=== PATIENT | female | born 1935 | race Caucasian/White ===

== ENCOUNTER 2019-05-18 18:55 | Observation (INO) | payer MEDICARE, SELFPAY ==
--- NOTE | ~2019-05-18 | XR_ITS ---
XR chest 2V 05/20/2019 11:00 Indication: Pulmonary vascular congestion. Shortness of breath. Cough. Procedure: 2 view chest Comparison: 05/18/2019 Findings: Small pleural effusions. Cardiomegaly. Pacemaker leads stable. No focal pneumonia, edema or pneumothorax. Left basilar atelectasis. Impression: 1: Small pleural effusions. 2: Left basilar atelectasis. 3: Cardiomegaly. Reviewed, dictated and finalized at location B. E RELIEF DRIVER Impression: 1: Small pleural effusions. 2: Left basilar atelectasis. 3: Cardiomegaly.
--- NOTE | ~2019-05-18 | XR_ITS ---
EXAMINATION: XR chest 1V portable EXAM DATE: 05/18/2019 19:45 INDICATION: Shortness of breath. TECHNIQUE: Portable AP frontal chest x-ray was obtained. There is no prior study for comparison. FINDINGS: There is a dual lead pacemaker/AICD seen with leads projecting over the expected locations of the right atrial appendage and right ventricle. The cardiac silhouette is enlarged. There is pulmo nary vascular congestion. No confluent consolidation, pneumothorax or pleural effusion suspected. The re are bony degenerative changes. IMPRESSION: Cardiomegaly, pulmonary vascular congestion. Reviewed, dictated and finalized at location A. APPLICATION DEVELOPER
--- NOTE | 2019-05-18 19:06 | ECG_ITS ---
Measurements Intervals [place] Rate: 68 P: 69 NM: 306 QRS: -71 QRSD: 178 T: 98 QT: 459 QTc: 490 Interpretive Statements ELECTRONIC ATRIAL PACEMAKER WITH INHIBITION ELECTRONIC VENTRICULAR PACEMAKER FREQUENT VENTRICULAR PREMATURE COMPLEXES BASELINE ARTIFACT- V1, V3, V4-V6 NO FURTHER INTERPRETATION IS POSSIBLE ABNORMAL ECG Electronically Signed On 05-19-2019 9:01:01 EGG FACTORY WORKER by Kirk Vasquez D.O.
[2019-05-18 19:18] VITALS: BP 174/111; PULSE 70; RESP 20; TEMP 37.1; O2SAT 97
[2019-05-18 19:30] LABS: Basophils Absolute Auto 0.02 K/mm3 (0.00-0.10); Basophils Percent Auto 0.3 % (0.0-1.0); Eosinophils Absolute Auto 0.09 K/mm3 (0.02-0.50); Eosinophils Percent Auto 1.1 % (1.0-6.0); Hematocrit 40.6 % (35.0-42.0); Immature Granulocyte Absolute 0.04 K/mm3 (0.00-0.00); Immature Granulocyte Percent A 0.5 % (0.0-0.0); Mean Corpuscular HGB Conc 34.5 g/dL (32.0-36.0); Mean Corpuscular Hemoglobin 30.8 pg (27.0-31.0); Mean Corpuscular Volume 89.2 fL (78.0-102.0); Mean Platelet Volume 9.8 fl (9.2-11.8); Monocytes Absolute Auto 0.57 K/mm3 (0.10-0.90); Monocytes Percent Auto 7.3 % (2.0-11.0); Neutrophils Percent Auto 76.8 % (50.0-70.0); Platelet Count Result 278 K/mm3 (150-420); Red Blood Count 4.55 M/mm3 (4.20-5.40); Red Cell Distribution Width 12.6 % (11.6-14.4); White Blood Count 7.9 K/mm3 (4.8-10.8)
[2019-05-18 19:43] LABS: INR 1.4; Prothrombin Time 14.3 Seconds (9.64-11.0)
[2019-05-18 19:50] LABS: BNP 1770 pg/mL (0-100)
[2019-05-18 19:57] LABS: Alanine Aminotransferase 189 U/L (14-59); Albumin Level 3.2 g/dL (3.4-5.0); Alkaline Phosphatase 85 U/L (46-116); Anion Gap 16.7 mmol/L (7-16); Aspartate Amino Transferase 85 U/L (15-37); Bilirubin,Total 0.3 mg/dL (0.00-1.00); Blood Urea Nitrogen 18 mg/dL (7-18); Calcium 8.7 mg/dL (8.5-10.1); Carbon Dioxide 21 mmol/L (21-32); Chloride 103 mmol/L (98-108); Estimated Glomerular Filt Rate 55; Glucose 138 mg/dL (70-99); Osmolality Calculated 287 mOsm/kg (285-295); Potassium 3.7 mmol/L (3.5-5.1); Sodium 137 mmol/L (136-145); Total Protein 6.5 g/dL (6.4-8.2)
[2019-05-18 19:59] LABS: Troponin I 0.02 ng/mL (0.00-0.056)
[2019-05-18 20:07] VITALS: BP 167/102; PULSE 60; O2SAT 98
[2019-05-18] MEDS: FUROSEMIDE INJ 40 MG/4 ML VIAL IV PUSH (20:14)
--- NOTE | 2019-05-18 20:39 | ED.SOB ---
HPI - SOB/Dyspnea General Chief Complaint: Shortness of Breath/Dyspnea Stated Complaint: amb Time Seen by Provider: 05/18/19 19:50 Source: patient and family Mode of arrival: EMS Limitations: clinical condition History of Present Illness HPI Narrative: Maddy is a 83-year-old female patient. Maddy has been driving from [place] to [place]. She was visiting family in [place]. She is from [place], [place] . She was in [facility]. She had a dual-chamber pacemaker implanted there 2 weeks ago. Her admission complaint is shortness of breath for the past 3 days. She has developed swelling of both legs. She has shortness of breath at rest. She denies any chest pain. She has had atrial fibrillation in the past . She had electrocardioversion done in [place]. I saw her discharge summary from [facility] . There is 1 note with says that anticoagulation was discussed with the patient but she had previously refused it. This time upon discussion, she apparently agreed to it but she is not on any anti coagulation at this time. She is in normal sinus rhythm at this time. She had an echocardiogram done in [facility]. Her LV ejection fraction was 62. She had moderate left ventricular hypertrophy. There was some degeneration of the mitral valve. She has severe aortic stenosis. She had mildly elevated pulmonary artery pressure. MD elicited complaint: shortness of breath Pertinent past history: other ( Atrial fibrillation. Hypothyroidism. Hypercholesterolemia. Hypertension.) Context: recent illness and other ( Had complete heart block and pacemaker implant) Severity: moderate Exacerbating factors: lying flat and exertion Relieving factors: oxygen Known history of: other ( no history of previous CHF) Treatment prior to arrival: oxygen Related Data Home oxygen amount: none Home Medications Medication Instructions Recorded Confirmed [id number] 1 cap PO DAILY 05/18/19 05/18/19 [K[employer] ([place] 3 and 6)] levothyroxine 50 mcg PO DAILY 05/18/19 05/18/19 lovastatin 20 mg PO DAILY 05/18/19 05/18/19 metoprolol tartrate 12.5 mg PO BID 05/18/19 05/18/19 valsartan 40 mg PO BID 05/18/19 05/18/19 Review of Systems Review of Systems: All systems reviewed & are unremarkable except as noted in HPI and below Constitutional: Constitutional: Reports as per HPI, Denies chills, Denies fever(s) and Reports weakness Eyes: Eyes: Reports as per HPI, Reports no additional eye complaints and Denies change in vision ENT: Reports system reviewed and no additional complaints, except as documented, Denies nasal congestion and Denies sore throat Cardiovascular: Cardiovascular: Reports as per HPI, Denies chest pain and Denies radiating jaw, neck or arm pain Respiratory: Respiratory: Reports as per HPI, Reports no additional respiratory complaints, Denies cough and Reports dyspnea Gastrointestinal: Gastrointestinal: Reports no additional gastrointestinal complaints, Denies abdominal pain, Denies diarrhea and Denies vomiting Genitourinary: Genitourinary: Reports no additional female genitourinary complaints, Denies hematuria and Denies dysuria Musculoskeletal: Musculoskeletal: Reports no additional musculoskeletal complaints and Denies back pain Integumentary/Breasts: Skin/Breast: Reports system reviewed and no additional complaints, except as docu, Denies erythema and Denies rash Neurologic: Reports system reviewed and no additional complaints, except as documented, Denies vertigo, Denies syncope, Denies headache(s), Denies focal weakness, Denies numbness and Reports weakness Psychiatric: Psychiatric: Reports no additional psychiatric complaints and Reports anxiety Endocrine: Endocrine: Reports no additional endocrine complaints, Denies polydipsia and Denies polyuria Comments: history of hypothyroidism Hematologic/Lymphatic: Hematologic/Lymphatic: Reports no additional hematologic/lymphatic complai
[2019-05-18 21:02] VITALS: BP 158/92; PULSE 60; O2SAT 97
[2019-05-18 21:48] VITALS: BP 164/87; PULSE 57; RESP 20; TEMP 36.1; O2SAT 97; BMI 33.0
[2019-05-19] VITALS (10 sets, daily range): BP systolic 129–157; BP diastolic 66–96; PULSE 57–102; RESP 16–20; TEMP 35.7–36.4; O2SAT 94–97
--- NOTE | 2019-05-19 00:24 | PC.NURSE ---
O21 3l per nc continues. Telemetry continues, paced.
--- NOTE | 2019-05-19 01:03 | PC.NURSE ---
Sleeping, resp even. Telemetry, O2 & continuopus pulse ox on.
--- NOTE | 2019-05-19 02:17 | PC.NURSE ---
Sleeping, resp deep & even. O2, continuous pulse ox & telemetry continue.
--- NOTE | 2019-05-19 03:04 | PC.NURSE ---
Sleeping, resp deep & even. Continous Spo2, o2 & telemetry
--- NOTE | 2019-05-19 04:10 | PC.NURSE ---
Pt has voided x2 so far this shift.
--- NOTE | 2019-05-19 04:20 | PC.NURSE ---
Called [facility] at [phone] Nurse's Station to enquire regarding medical record/Echo. Staff transferred call and was placed on hold and call terminated.
--- NOTE | 2019-05-19 04:23 | PC.NURSE ---
Spoke with [employer] Hardware Design Engineer regarding Echo ordered 05/18/2019; to contact floor regarding time.
--- NOTE | 2019-05-19 06:06 | PC.NURSE ---
Pt has voided 1450ml urine this shift. Pt states is having leg cramps.
--- NOTE | 2019-05-19 06:11 | PC.NURSE ---
Meg, Lab notified of need for CMP stat.
[2019-05-19 06:39] LABS: Alanine Aminotransferase 161 U/L (14-59); Alkaline Phosphatase 73 U/L (46-116); Anion Gap 13.2 mmol/L (7-16); Aspartate Amino Transferase 61 U/L (15-37); Bilirubin,Total 0.6 mg/dL (0.00-1.00); Blood Urea Nitrogen 14 mg/dL (7-18); Calcium 8.8 mg/dL (8.5-10.1); Carbon Dioxide 28 mmol/L (21-32); Chloride 101 mmol/L (98-108); Estimated CRCL calculation 38 ml/min; Estimated Glomerular Filt Rate 57; Glucose 107 mg/dL (70-99); Osmolality Calculated 288 mOsm/kg (285-295); Potassium 3.2 mmol/L (3.5-5.1); Sodium 139 mmol/L (136-145); Total Protein 6.2 g/dL (6.4-8.2)
[2019-05-19 06:49] LABS: BNP 1570 pg/mL (0-100)
--- NOTE | 2019-05-19 07:30 | PC.NURSE ---
96% on 2L NC, no distress at rest denies needs at this time, commode chair set up by bed
--- NOTE | 2019-05-19 08:30 | PC.NURSE ---
Ate well for breakfast, no distress noted, PO 92% Room air
--- NOTE | 2019-05-19 09:11 | PC.NURSE ---
Call made for patient and transferred to room, no distress noted, pulse ox when talking noted to be 90% on room air, heart rate 100
[2019-05-19] MEDS: METOPROLOL TARTRATE 25 MG TABLET 12.5 MG PO ×2 (09:32→20:19)
[2019-05-19] MEDS: LEVOTHYROXINE SODIUM 50 MCG TABLET PO (09:32)
[2019-05-19] MEDS: POTASSIUM CHLORIDE 20 MEQ PACKET (FOR LIQUID) 40 MEQ PO (09:33)
[2019-05-19] MEDS: FUROSEMIDE INJ 40 MG/4 ML VIAL IV PUSH ×2 (09:33→17:04)
[2019-05-19] MEDS: ENOXAPARIN 40 MG/0.4 ML SYRINGE SUB-Q (09:34)
[2019-05-19] MEDS: VALSARTAN 80 MG TABLET 40 MG PO ×2 (09:40→20:18)
--- NOTE | 2019-05-19 09:48 | PC.NURSE ---
AM meds administered, remains on telemetry with demand pacer spikes noted, oxygen is off at this time with room air sat 96% resting in bed, oral potassium added with the IV lasix today
--- NOTE | 2019-05-19 10:32 | PC.NURSE ---
PO on room air at this time 94%
--- NOTE | 2019-05-19 11:09 | PC.NURSE ---
Dr Bernal and Hospitalist Paris Varma in to make rounds on patient
--- NOTE | 2019-05-19 12:03 | PC.NURSE ---
Sitting on edge of bed, no distress, oxygen level 94% room air
--- NOTE | 2019-05-19 12:21 | PM.IMHP ---
H&P: HPI History of Present Illness Chief complaint: amb <HENRY Red - Last Filed: 05/19/19 15:47> Narrative: lei albert is a 83 year old female that presented to the ED complaining of shortness of breath with dyspnea and bilateral lower extremity swelling. Patient has a past medical history , hypertension, hypothyroidism, severe aortic stenosis pacemaker placed 2 weeks ago and hypercholesterolemia. According to patient she is traveling from [place] back home to [place] during her travel she experiences shortness of breath that worsened that she has had for 3 days and bilateral lower extremity swelling. patient was recently admitted into [facility] on 05/04/19 while visiting in [place] for near-syncope episode and found to have a second-degree heart block with intermittent complete heart block at that time a pacemaker was place. While in the ER patient was given Lasix 40 mg. chest x-ray indicated pulmonary vascular congestion, EKG noted paced with a heart rate of 68, BnP was 1770. Patient has agreed to stay 1 more day to be diaphoresis. She needs to discharge early tomorrow morning so that she can return home to visit her yarn rewinder. I did contact her yarn rewinder Dr. Brett Wick at [phone] to see if we can schedule her an appointment. Patient's vital signs 157/84, 57, 18, 30.7, 94% air. she is being admitted for CHF exacerbation. Patient noted that since she had received the Lasix her breathing has improved and her leg swelling has decreased. Patient able to tolerate all meals , slept well and ambulate at baseline. Patient denies SOB, CP, palpitation, extremity numbness, lightheadness, dizziness, constipation, diarrhea, or chills or fever. <HENRY Red - Last Filed: 05/19/19 15:47> Review of Systems Constitutional: Constitutional: Denies headache(s), Reports lethargy and Reports weakness <HENRY Red - Last Filed: 05/19/19 15:47> Cardiovascular: Cardiovascular: Reports leg edema, Reports dyspnea, Reports dyspnea on exertion and Reports orthopnea <HENRY Red - Last Filed: 05/19/19 15:47> Respiratory: Respiratory: Reports dyspnea and Reports dyspnea on exertion <HENRY Red - Last Filed: 05/19/19 15:47> Gastrointestinal: Gastrointestinal: Reports no additional gastrointestinal complaints <HENRY Red - Last Filed: 05/19/19 15:47> Genitourinary: Genitourinary: Reports no additional female genitourinary complaints <HENRY Red - Last Filed: 05/19/19 15:47> Musculoskeletal: Musculoskeletal: Reports no additional musculoskeletal complaints <HENRY Red - Last Filed: 05/19/19 15:47> Integumentary/Breasts: Skin/Breast: Reports swelling ( bilateral lower extremity) <HENRY Red - Last Filed: 05/19/19 15:47> Neurologic: Reports system reviewed and no additional complaints, except as documented, Denies vertigo, Denies dizziness, Denies syncope and Denies headache(s) <HENRY Red - Last Filed: 05/19/19 15:47> Psychiatric: Psychiatric: Reports no additional psychiatric complaints, Denies anxiety and Denies confusion <HENRY Red - Last Filed: 05/19/19 15:47> Endocrine: Endocrine: Reports no additional endocrine complaints <HENRY Red - Last Filed: 05/19/19 15:47> [facility] Past Medical History Medical History: Medical History (Updated 05/19/19 @ 13:08 by HENRY Red) Atrial fibrillation Hypercholesterolemia Hypertension Hypothyroidism Pacemaker <HENRY Red - Last Filed: 05/19/19 15:47> Surgical History Surgical History: Surgical History (Updated 05/18/19 @ 20:50 by Trey Grossman MD) Hx of dilation and curettage <HENRY Red - Last Filed: 05/19/19 15:47> Family History Family History: Family History (Updated 05/18/19 @ 20:51 by Trey Grossman MD) Mother
--- NOTE | 2019-05-19 13:00 | PC.NURSE ---
INformation on CHF given to patient and spouse, no change in telemetry, paced rhythm, rate 60's
--- NOTE | 2019-05-19 14:05 | PC.NURSE ---
Resting in bed, no distress, denies needs, slight pedal edema present, states feels her swelling is much improved
[2019-05-19] MEDS: LOVASTATIN 20 MG TABLET PO (17:04)
--- NOTE | 2019-05-19 21:39 | P.PNCROSS_ITS ---
Event Note Event Note Event Note: I had [id number] time with this patient and reviewed Claudio Varma TOOL TROUBLE SHOOTER's documentation, treatment plan, and medical decision making. Echo from [place] shows severe aortic stenosis which may have contributed to pt's episode of CHF. BNP drop for 1,700 to 1,500; negative serial troponins. Breathing is much better after diuresis. She has a [address] to [place]. Bibasilar rales on exam without wheezes. No hepatomegaly. No pedal edema. Continue diuresis and d.c. tomorrow. Attempt to make appt. with pt's (new) leading firefighter; otherwise, with PCP doc in [place]. Avoid salt.
--- NOTE | 2019-05-19 22:41 | PC.NURSE ---
pt appears to be sleeping, chest movement evident, hob up, no s/sx of distress
[2019-05-20] VITALS (10 sets, daily range): BP systolic 112–145; BP diastolic 51–85; PULSE 44–86; RESP 16–20; TEMP 36.1–36.4; O2SAT 94–96
--- NOTE | 2019-05-20 00:02 | PC.NURSE ---
Telemetry continues. Pt on room air.
--- NOTE | 2019-05-20 05:26 | PC.NURSE ---
Lab here for blood draw.
[2019-05-20 05:37] LABS: Hematocrit 41.2 % (35.0-42.0); Hemoglobin 14.3 g/dL (11.7-13.8); Mean Corpuscular HGB Conc 34.7 g/dL (32.0-36.0); Mean Corpuscular Hemoglobin 30.7 pg (27.0-31.0); Mean Corpuscular Volume 88.4 fL (78.0-102.0); Mean Platelet Volume 9.9 fl (9.2-11.8); Platelet Count Result 280 K/mm3 (150-420); Red Blood Count 4.66 M/mm3 (4.20-5.40); Red Cell Distribution Width 12.6 % (11.6-14.4); White Blood Count 6.4 K/mm3 (4.8-10.8)
[2019-05-20 06:03] LABS: BNP 850 pg/mL (0-100)
[2019-05-20 06:07] LABS: Alanine Aminotransferase 128 U/L (14-59); Albumin Level 2.9 g/dL (3.4-5.0); Alkaline Phosphatase 66 U/L (46-116); Anion Gap 12.2 mmol/L (7-16); Aspartate Amino Transferase 40 U/L (15-37); Bilirubin,Total 0.6 mg/dL (0.00-1.00); Blood Urea Nitrogen 19 mg/dL (7-18); Carbon Dioxide 30 mmol/L (21-32); Chloride 101 mmol/L (98-108); Estimated CRCL calculation 33 ml/min; Estimated Glomerular Filt Rate 50; Glucose 103 mg/dL (70-99); Osmolality Calculated 292 mOsm/kg (285-295); Potassium 3.2 mmol/L (3.5-5.1); Sodium 140 mmol/L (136-145); Total Protein 6.1 g/dL (6.4-8.2)
[2019-05-20] MEDS: LEVOTHYROXINE SODIUM 50 MCG TABLET PO (06:12)
[2019-05-20 07:31] LABS: Calcium 8.7 mg/dL (8.5-10.1)
[2019-05-20] MEDS: METOPROLOL TARTRATE 25 MG TABLET 12.5 MG PO (08:21)
[2019-05-20] MEDS: ENOXAPARIN 40 MG/0.4 ML SYRINGE SUB-Q (08:21)
[2019-05-20] MEDS: VALSARTAN 80 MG TABLET 40 MG PO (08:22)
[2019-05-20] MEDS: POTASSIUM CHLORIDE 20 MEQ PACKET (FOR LIQUID) 40 MEQ PO (08:22)
[2019-05-20] MEDS: FUROSEMIDE INJ 40 MG/4 ML VIAL IV PUSH (08:28)
--- NOTE | 2019-05-20 09:42 | ECG_ITS ---
Measurements Intervals [place] Rate: 62 P: 23 TN: 230 QRS: -36 QRSD: 100 T: 239 QT: 466 QTc: 476 Interpretive Statements ELECTRONIC ATRIAL PACEMAKER WITH INHIBITION ELECTRONIC VENTRICULAR PACEMAKER WITH INHIBITION FIRST DEGREE AV BLOCK POSSIBLE LEFT ATRIAL ENLARGEMENT LEFT AXIS DEVIATION DELAYED PRECORDIAL R/S TRANSITION T WAVE ABNORMALITY IN ANTEROLAT/INF LEADS- CONSIDER ISCHEMIA ABNORMAL ECG Electronically Signed On 05-20-2019 10:16:42 SHEET CUTTING OPERATOR by Kirk Vasquez D.O.
[2019-05-20 09:49] LABS: Magnesium 1.7 mg/dL (1.8-2.4); Phosphorus 3.5 mg/dL (2.6-4.7)
[2019-05-20 10:39] LABS: Creatine Kinase 42 U/L (26-192); Troponin I 0.04 ng/mL (0.00-0.056)
[2019-05-20] MEDS: MAGNESIUM SULF 2 GM/WATER 50ML 2 GM/50 ML BAG IVPB (12:07)
[2019-05-20] MEDS: POTASSIUM CHLORIDE 10 MEQ TABLET 40 MEQ PO (12:21)
--- NOTE | 2019-05-20 12:40 | PM.DS ---
DS: Diagnosis Admitting Diagnosis Admitting Diagnosis: Acute systolic (congestive) heart failure and Bradycardia <Yaneth Rivera NP - Last Filed: 05/20/19 19:43> Discharge Diagnosis (1) CHF (congestive heart failure): Qualifiers: Heart failure chronicity: acute Heart failure type: systolic Qualified Code(s): I50.21 - Acute systolic (congestive) heart failure <Yaneth Rivera NP - Last Filed: 05/20/19 19:43> Code(s): I50.9 - Heart failure, unspecified <Yaneth Rivera NP - Last Filed: 05/20/19 19:43> Status: Acute <Yaneth Rivera NP - Last Filed: 05/20/19 19:43> Assessment and Plan: * newly diagnosed congestive heart failure * tried x 3 attempts to contact , patient's new fisher pot in [place], but he has never seen her yet echo from an outside hospital indicates 1. LV ejection fraction is normal at 62 % 2. moderate left ventricle hypertrophy 3. moderate increased left ventricle posterior wall thickness 4. moderately increased left ventricle septal thickness 5. pseudo normal pattern of LV diastolic filling. 6. Mildly dilated left atrium 7. degenerative mitral valve 8. severe aortic valve stenosis 9. Mildly elevated pulmonary artery systolic pressure continued use of Lasix weigh daily BNP improved but pacemaker not pacing appropriately per EKG findings. Patient's EKGs and records were reviewed by EP fisher pot Dr. Jose Noriega who agreed that patient should be transferred to a higher level of care for further Cardiac Interventions and Specialist. Transferred to [facility] in [place], [place] for EP Loop Tacker Consutation, PPM interrogation and changes to settings, adjustments to Lasix/KCL/Metoprolol dosing, and further monitoring by Loop Tacker and email campaign specialist. <Yaneth Rivera NP - Last Filed: 05/20/19 19:43> (2) Hypertension: Qualifiers: Hypertension type: essential hypertension Qualified Code(s): I10 - Essential (primary) hypertension <Yaneth Rivera NP - Last Filed: 05/20/19 19:43> Code(s): I10 - Essential (primary) hypertension <Yaneth Rivera NP - Last Filed: 05/20/19 19:43> Status: Acute <Yaneth Rivera NP - Last Filed: 05/20/19 19:43> Assessment and Plan: Systolic blood pressure 120s to 150s continue home antihypertensive medications vital signs is ordered likely would benefit from reduction in Metoprolol dosing today, depending on where the PPM settings are changed to. Patient's EKGs and records were reviewed by EP fisher pot Dr. Jose Noriega who agreed that patient should be transferred to a higher level of care for further Cardiac Interventions and Specialist. Transferred to [facility] in [place], [place] for EP Loop Tacker Consutation, PPM interrogation and changes to settings, adjustments to Lasix/KCL/Metoprolol dosing, and further monitoring by Loop Tacker and email campaign specialist. <Yaneth Rivera NP - Last Filed: 05/20/19 19:43> (3) Atrial fibrillation: Code(s): I48.91 - Unspecified atrial fibrillation <Yaneth Rivera NP - Last Filed: 05/20/19 19:43> Status: Acute <Yaneth Rivera NP - Last Filed: 05/20/19 19:43> Assessment and Plan: controlled no anticoagulation on home med list or on current in patient list continued daily Lovenox heart rate controlled at this time and appears to be regular per EKGs and Telemetry monitoring - no sign of Afib at this time. patient with pacemaker in place continue telemetry Patient's EKGs and records were reviewed by EP fisher pot Dr. Jose Noriega who agreed that patient should be transferred to a higher level of care for further Cardiac Interventions and Specialist. Transferred to [facility] in [place], [place] for EP Loop Tacker Consutation, PPM interrogation and changes to settings, adjustments to Lasix/KCL/Metoprolol dosing, and further monitoring by Loop Tacker karyn
--- NOTE | 2019-05-20 13:35 | PC.NURSE ---
[facility] called to transfer patient to [facility].
--- NOTE | 2019-05-20 14:55 | PC.NURSE ---
1400 she has been up in room off and on . denied chest pain or sob. encouraged to keep feet up. tele shows paced rhtym withrates of 50-60.
--- NOTE | 2019-05-20 15:03 | PC.NURSE ---
carpet layer arranged transfer to [facility]. pt agrees. still cont to deny pain or sob. report given to asa and was assigned to rm #[id number]. saas notified and transfered per ambulance at 1400.
== END 2019-05-20 14:00 | disposition home or self-care (01) ==
LOC: CHSED 20:57 → CHS2ND 21:06
PROVIDERS: Nurse Practitioner; Admitting Provider Surgery; Emergency Provider Surgery; Visit Provider Surgery
DX: I11.0 Hypertensive heart disease with heart failure (principal); I50.21 Acute systolic (congestive) heart failure; Z95.0 Presence of cardiac pacemaker; E03.9 Hypothyroidism, unspecified; E78.00 Pure hypercholesterolemia, unspecified; I48.20 Chronic atrial fibrillation, unspecified; I35.0 Nonrheumatic aortic (valve) stenosis; R00.1 Bradycardia, unspecified
CPT/HCPCS: 36415; 71045; 71046; 80053; 82550; 82553; 83735; 83880; 84100; 84484; 85025; 85027; 85610; 85730; 93005; 96365; 96372; 96374; 99285; A9270; G0378; J1650; J1940; J3475